=== PATIENT | female | born 1950 | race Caucasian/White ===

== ENCOUNTER 2018-05-31 16:14 | Observation (INO) ==
[2018-05-31] MEDS ORDERED: ULTRAM PO ONE (17:18)
[2018-05-31 17:24] LABS: BASO# 0.04 X1000 (0.0-0.2); BASO% 0.3 % (0.0-0.8); EOS% 1.6 % (0.0-10.0); HEMATOCRIT 36.7 % (37.0-47.0); HEMOGLOBIN 12.4 g/dL (12.0-16.0); IMM GRAN# 0.03 X1000 (0.0-0.04); IMM GRAN% 0.2 % (0.0-0.5); LYMPH# 4.49 X1000 (1.2-3.4); MCH 31.6 PG (27-31); MCHC 33.8 g/dL (33-37); MCV 93.6 FL (81-99); MONO# 0.75 X1000 (0.11-0.59); MONO% 5.9 % (1.7-9.3); MPV 10.4 FL (7.4-10.4); NEUT# 7.31 X1000 (1.4-6.5); PLT 293 X1000 (130-400); RBC 3.92 XMIL (4.2-5.4); RDW 12.6 % (11.5-14.5); WBC 12.82 X1000 (4.8-10.8)
[2018-05-31 17:42] LABS: ALB/GLOB RATIO 1.1; CALCIUM 9.4 mg/dL (8.8-10.2); CREATININE 1.6 mg/dL (0.5-0.9); POTASSIUM 4.6 mmol/L (3.5-5.1); TOTAL BILIRUBIN 0.37 mg/dL (0.20-1.00); TOTAL PROTEIN 7.5 g/dL (6.3-8.3)
[2018-05-31] MEDS ORDERED: NS 1,000 ML IV ONE (17:59)
[2018-05-31] MEDS ORDERED: D50W SYRINGE IV ONE (18:08)
[2018-05-31] MEDS ORDERED: MACROBID PO ONE (18:09)
--- NOTE | 2018-05-31 18:12 | PROVIDER DOCUMENTATION ---
This chart was entered by Jojo Tyson Scribe, acting as scribe for Carlos Christopher MD. HPI-Musculoskeletal Pain/Inj - GENERAL Chief Complaint: Extremity Pain Stated Complaint: right leg pain Time Seen by Provider: 05/31/18 16:30 Source: patient, family - HX OF PRESENT ILLNESS-MUSKULOSKELTAL Nature of Presenting Problem: 68 yowf presents to the ed with c/o RLE pain, swelling and warm to touch. pt sts onset was yesterday and has continued to get worse Quality of Pain: reports: aching, fullness Severity in ED: moderate Onset/Duration: 24 hours ago Timing: still present, getting worse Modifying Factors: improves with: immobilization. worse with: movement, palpation Any recent injury?: No Locality of Occurance: Home Similar Symptoms Previously?: No Recently seen or treated by another doctor?: No Review of Systems - Adult - REVIEW OF SYSTEMS - ADULT Constitutional: denies: chills, fever Eyes: reports: no symptoms reported Ears, Nose, Mouth & Throat: reports: no symptoms reported Cardiovascular: denies: chest pain, palpitations, syncope Respiratory: denies: cough, shortness of breath, wheezing Gastrointestinal: denies: abdominal pain, diarrhea, nausea, vomiting Genitourinary: reports: no symptoms reported Musculoskeletal: reports: frequent leg cramps, other (RLE). denies: back pain, neck pain Integumentary: reports: no symptoms reported Neurological: denies: dizziness/vertigo, headache/migraines, loss of balance, numbness, paresthesia, slurred speech, syncope, tremors Psychiatric: reports: no symptoms reported Endocrine: reports: no symptoms reported Hematologic/Lymphatic: denies: blood clots, easy bruising Allergic/Immunologic: reports: no symptoms reported All Other Systems: Reviewed and Negative Past History - Adult - PAST MEDICAL HISTORY-ADULT Review of Records: reports: Nursing Assessment Review, Medications Reviewed Major Childhood Illnesses: reports: denies history Cardiovascular: reports: HTN Respiratory: reports: denies history Gastrointestinal: reports: denies history Obstetrical/Gynecological: reports: denies history Genitourinary: reports: denies history Musculoskeletal: reports: denies history Hand Dominance: Right Handed Neurological: reports: denies history Psychiatric: reports: denies history Endocrine/Immune: reports: Diabetes Diabetes Type: Type 2 Other Conditions: reports: denies history - PRIOR SURGERIES/PROCEDURES Surgical/Procedure History: reports: hysterectomy, hernia repair - IMMUNIZATION STATUS Childhood Immunizations: See Nurse Assessment Flu Vaccine: See Nurse Assessment - FAMILY HISTORY Family History: reviewed, not pertinent - SOCIAL HISTORY Smoking: denies Substance Use: denies Living Situation: family Physical Exam-Injury Related - Physical Exam-Injury Related Initial Vital Signs Reviewed: Yes General Appearance: appears well, alert, no apparent distress, obese Eyes: PERRL/EOMI, pink conjunctivae Head, Ears, Nose, Mouth & Throat: normocephalic/atraumatic, moist mucous membranes, dental decay Neck: non-tender, full range of motion, supple, normal inspection Respiratory: chest non-tender, lungs clear, normal breath sounds Cardiovascular: normal peripheral pulses, regular rate, rhythm Chest/Breast: deferred Peripheral Pulses: radial (R): 2+, radial (L): 2+, dorsalis-pedis (R): 2+, dorsalis-pedis (L): 2+ Abdominal Exam: normal bowel sounds, non tender, soft Female Genitalia/Pelvic Exam: deferred Rectal Exam: deferred Hemoccult Exam: deferred Lymphatic: no adenopathy Back Exam: normal inspection Extremity: normal capillary refill, pelvis stable, calf tenderness (rt), swelling (RLE), tenderness (RLE), other (warm to palpation 440 cm on Rt, 410 cm on left). negative: normal gait Integumentary: normal color, warm/dry Neurologic: grossly normal, no motor/sensory deficits - Glascow Coma Score Best Eye Response ([place]): (4) open spontaneously Best Verbal Response ([place]): (5) oriented Best Motor Response ([place]): (6) obeys commands Gen Total: 15 Progress - PLAN OF CARE/RESULTS Progress/Plan/Lab Results: Vital Signs - 8 hr 05/31/18 16:40 Temperature 97.9 F Pulse Rate 78 Respiratory Rate 18 Blood Pressure 135/71 O2 Sat by Pulse Oximetry 98 Laboratory Results - last 24 hr 05/31/18 05/31/18 05/31/18 17:02 17:02 17:02 WBC 12.82 H RBC 3.92 L Hgb 12.4 Hct 36.7 L MCV 93.6 MCH 31.6 H MCHC 33.8 RDW Std Deviation 12.6 Plt Count 293 MPV 10.4 Immature Gran % (Auto) 0.2 Neut % (Auto) 57.0 Lymph % (Auto) 35.0 [place] % (Auto) 5.9 Eos % (Auto) 1.6 Baso % (Auto) 0.3 Immature Gran # (Auto) 0.03 Neut # (Auto) 7.31 H Lymph # (Auto) 4.49 H [place] # (Auto) 0.75 H Eos # (Auto) 0.20 Baso # (Auto) 0.04 D-Dimer, Quantitative 1.23 H Sodium 136 Potassium 4.6 Chloride 99 Carbon Dioxide 25 Anion Gap 12 BUN 42 H Creatinine 1.6 H Estimated GFR/1.73 m2 32 BUN/Creatinine Ratio 26 Glucose 57 L Calculated Osmolality 280 Calcium 9.4 Total Bilirubin 0.37 AST 15 ALT 9 L Alkaline Phosphatase 102 Total Protein 7.5 Albumin 4.0 Globulin 3.5 Albumin/Globulin Ratio 1.1 Orders Category Date Time Status Saline Loc NOW Care 05/31/18 17:58 Active CBC WITH ELECTRONIC DIFF [HEME] Stat Lab 05/31/18 17:02 Completed COMPREHENSIVE METABOLIC PANEL [CHEM] Stat Lab 05/31/18 17:02 Completed D-DIMER [COAG] Stat Lab 05/31/18 17:02 Completed UA [URINALYSIS W/POSS RFLX CULT] [URINALYSIS] Stat Lab 05/31/18 16:56 Uncollected 0.9% Sodium Chloride Inj [Ns] 1,000 ml Med 05/31/18 17:59 Active IV 999 mls/hr Dextrose 50% Syringe [D50w Syringe] Med 05/31/18 18:08 Once 50 ml IV NOW ONE Nitrofurantoin [place]/Macrocryst [Macrobid] Med 05/31/18 18:09 Once 100 mg PO NOW ONE Tramadol [Ultram] Med 05/31/18 17:18 Discontinued 50 mg PO NOW ONE US [Venous U/S Right Leg] Stat Ther 05/31/18 16:49 Completed A/P: ALEXY. peripheral neuropathy, varicose veins, possible muscle strain. US doppler neg for DVT. vitals stable. elevated dimer. No SOB, no cough, no respiratory symptoms. She has elevated BUN, Having suprapubic pain, will give macrobid. will admit for hypoglycemia and dehydration As I was re evaluating pt, Family member daughter says we do not know what were doing, they are demanding a CT of her Right leg, stating she "cant walk" she stated she is done with me and done wit this hospital. She is very aggressive and agitated, threw up her arms and said im done with you. Result Diagrams: 05/31/18 17:02 05/31/18 17:02 - CONSULTS/PCP/HOSPITALIST Notification #1 *Consult/PCP/Hospitalist*: Dr Marie Time Discussed: 18:11 Consult Disposition: Admit Departure - Departure Date of Disposition Decision: 05/31/18 Time of Disposition Decision: 18:11 DIAGNOSIS: Right leg pain, Dehydration, Hypoglycemia Disposition: ADMITTED INPATIENT 09 Certified Medical Emergency: Emergent Condition: Stable Additional Freetext Instructions: ED Follow Up Instructions: You have been treated by a care provider in the Emergency Department. These instructions are being provided to you so you can have an understanding of how to care for yourself upon discharge. Upon discharge from the Emergency Department, you are responsible for making arrangements for follow-up care by a physician of your choice. Take all prescribed medications as directed. Return to the Emergency Department immediately for any new or worsening symptoms. You may call the Physician Referral phone number at [phone] to obtain a list of Physicians who are taking new patients. Referrals and Follow-Ups: Melissa Weiss MD [Primary Care Provider] - Call for Appoint. -1 week (please call your pcp in 1 week for appointment, if symtoptoms worses, return imme diaelty to ED) - Critical Care Note This patient required my direct & personal management of CC.: No Attestation - Physician/ JAUN Attestation Patient care was provided by Advanced Practice Provider:: No The physician spent face to face time with patient:: Yes Advanced Practice Provider documentation review:: Supervising physician onsite and consulted in the evaluation and care of this patient. The physician did have a face to face encounter with the patient. This chart was documented by the indicated scribe, (Jojo Tysno Scribe) and accurately reflects the services I performed and decisions made by me, Carlos Christopher MD, as attested by the provider's signature.
--- NOTE | 2018-05-31 18:55 | HISTORY AND PHYSICAL ---
PRIMARY CARE PHYSICIAN: Dr. Melissa Weiss. CHIEF COMPLAINT: Right lower extremity pain, swelling and tender to touch, onset today with increased difficulty walking. HISTORY OF PRESENTING ILLNESS: This is a 68-year-old female who presents to [facility] with complaints of right lower extremity pain, swelling, and tender to touch. States it began yesterday and she had increasing difficulty walking to the point she felt that she could not stand on her feet today and take steps. She states she has some diabetic neuropathy and that she can tell that it is getting worse. She is weak in both lower extremities. Her workup showed a white blood cell count of 12.82. Her D-dimer was 1.23. Preliminary results of her bilateral lower extremity DVT was negative and she did have a bump in her BUN and creatinine at 42 and 1.6 but she does have some chronic kidney disease stage 3. Her blood sugar was also noted to be low at 57. Her urinalysis is pending at this time so we will place her under observation for further evaluation and treatment. PAST MEDICAL HISTORY: Diabetes type 2, hypertension, chronic kidney disease stage 3. PAST SURGICAL HISTORY: Hysterectomy and a hernia repair. FAMILY HISTORY: Her mom had CAD and a CVA. Father had COPD. SOCIAL HISTORY: She currently lives with family. Denies any tobacco, alcohol or illicit drug use. ALLERGIES: She has no known drug allergies. HOME MEDICATIONS: We need to obtain a current list, review, reconcile and restart as appropriate. We will place an order for nursing to update and confirm home medications. LABORATORY DATA: Showed a white blood cell count of 12.82, hemoglobin 12.4, hematocrit 36.7, platelets 293,000. D-dimer of 1.23, BUN of 42, creatinine 1.6, glucose 57. REVIEW OF SYSTEMS: She denied any fever, chills, blurred vision, dizziness, chest pain, coughing, shortness of breath. She denied any abdominal pain, constipation, diarrhea, burning or hurting with urination. She has generalized weakness to her bilateral lower extremities with increased difficulty walking. States she has had some difficulty urinating but no burning or hurting. PHYSICAL EXAMINATION: On arrival she had a temperature of 97.9 degrees, pulse 78, respirations 18, blood pressure 135/71, saturating 98% on room air. GENERAL: This is a 68-year-old female sitting up in the bed and answers questions appropriately. Family also at bedside to answer questions and review of medical record. HEENT: Appears normocephalic and atraumatic. Normal ENT inspection. Oropharynx and nares are clear. Pupils are equal, round, reactive to light and accommodation. Extraocular movements are intact. NECK: Normal inspection, normal range of motion. LUNGS: Clear to auscultation bilaterally with equal lung expansion, chest wall movement. HEART: With regular rate and rhythm. No murmurs, rubs, or gallops. ABDOMEN: Soft, nontender, nondistended. Bowel sounds are present x4 quadrants. MUSCULOSKELETAL: She had 2 to 3/5 to all 4 extremities. NEUROLOGICAL: The cranial nerves 2-12 appear grossly intact. ASSESSMENT: 1. Acute kidney injury on chronic kidney disease stage 3. 2. Hypoglycemia in a known diabetic type 2. 3. Generalized lower extremity weakness. 4. Hypertension history of. PLAN: She will be admitted to the medical unit. Placed on telemetry, diabetic diet, pattern blood sugars with sliding scale insulin, D5 NS at 75 mL an hour. Recheck a CBC, BMP in the a.m., will consult physical therapy. We are going to do a bladder scan and record the results. UA with possible reflex culture is pending and again we need to update and confirm home medications and then will restart as appropriate. Further orders after seen by attending. Dictated by CHACHA Shanks for Jesus Manuel Marie MD cc: Melissa Weiss MD
[2018-05-31 19:12] LABS: URINE SOURCE CLEAN CATCH
[2018-05-31 19:23] LABS: BILIRUBIN URINE NEGATIVE (NEGATIVE); BLOOD URINE NEGATIVE (NEGATIVE); COLOR YELLOW; GLUCOSE URINE NEGATIVE (NEGATIVE); KETONE URINE NEGATIVE (NEGATIVE); LEUKOCYTES URINE LARGE (NEGATIVE); NITRITE URINE NEGATIVE (NEGATIVE); PH URINE 7.5; PROTEIN URINE NEGATIVE (NEGATIVE); SP GRAVITY URINE 1.004; TURBIDITY URINE HAZY (CLEAR); UROBILINOGEN URINE NORMAL (NORMAL)
[2018-05-31 19:26] LABS: UR EPITHELIAL CELLS <10 /HPF (<10); URINE BACTERIA 4+ /HPF; URINE RBC <10 /HPF (<10); URINE WBC TNTC /HPF (<10)
[2018-06-01] MEDS ORDERED: HUMALOG SUBQ PRN (00:05)
[2018-06-01] MEDS ORDERED: TYLENOL PO PRN (00:05)
[2018-06-01] MEDS ORDERED: ZOFRAN IV PRN (00:05)
[2018-06-01] MEDS ORDERED: D5 NS 1,000 ML IV SCH (00:05)
[2018-06-01] MEDS ORDERED: LOVENOX SUBQ SCH (00:05)
[2018-06-01] MEDS ORDERED: ULTRAM PO ONE (05:07)
[2018-06-01 07:36] LABS: BASO# 0.02 X1000 (0.0-0.2); BASO% 0.3 % (0.0-0.8); EOS# 0.31 X1000 (0.0-0.7); EOS% 4.5 % (0.0-10.0); HEMATOCRIT 35.6 % (37.0-47.0); HEMOGLOBIN 11.7 g/dL (12.0-16.0); LYMPH# 2.08 X1000 (1.2-3.4); LYMPH% 30.2 % (20.5-51.1); MCH 31.5 PG (27-31); MCHC 32.9 g/dL (33-37); MONO# 0.61 X1000 (0.11-0.59); MONO% 8.9 % (1.7-9.3); MPV 10.5 FL (7.4-10.4); NEUT# 3.87 X1000 (1.4-6.5); NEUT% 56.1 % (42.2-75.2); PLT 237 X1000 (130-400); RBC 3.71 XMIL (4.2-5.4); RDW 12.8 % (11.5-14.5); WBC 6.89 X1000 (4.8-10.8)
[2018-06-01 07:45] LABS: CALCIUM 8.1 mg/dL (8.8-10.2); CREATININE 1.3 mg/dL (0.5-0.9); POTASSIUM 4.4 mmol/L (3.5-5.1)
[2018-06-01 08:25] VITALS: BP 125/61
[2018-06-01] MEDS ORDERED: MACROBID PO SCH (09:15)
--- NOTE | 2018-06-01 19:33 | DISCHARGE SUMMARY ---
ADMISSION DATE: 05/31/2018 DISCHARGE DATE: 06/01/2018 LABORATORIES: Initial WBC 12.8, repeat 6.8. Initial creatinine 1.6, repeat 3. Urinalysis with no epithelial cells, too numerous to count white cells, large leukocyte esterase, no protein, blood, or glucose. DISCHARGE DIAGNOSES: 1. Right hamstring strain. 2. Urinary tract infection. 3. Diabetes mellitus. 4. Acute kidney injury on chronic kidney disease 3. 5. Hypoglycemia. HOSPITAL COURSE: The patient had presented initially complaining of right leg pain and difficulty walking. She complained of several days of slowly progressive difficulty walking on the right leg and right leg pain. Initial workup in the ED showed a mildly elevated D-dimer of 1.23, but ultrasound showed no signs of clot. There were no deformities on exam. She did have some tenderness along the right hamstring and some pain with movement that leg. There were no other finding on exam, so she was felt to likely have a right hamstring strain. She was also incidentally found to have mild hypoglycemia with an initial glucose of 57. She had a mildly elevated creatinine over baseline with a creatinine of 1.6 initially. Baseline appears to be approximately 1.3. She was given glucose and fluids. She was started on Macrobid in the ED for her UTI, which was continued. The patient has had multiple previous UTIs which have all been E. coli, sensitive to Macrobid. The next day, the patient's creatinine was improving to her baseline. She had no further hypoglycemia on a significantly reduced dose of her home insulin. Her leg pain was still present but improving, as was her ability to move. Discussed with patient the possibility of physical therapy and potentially rehab, but she was adamantly opposed to this. As the patient was supposed to rehab and strongly desired discharge, she was afebrile, her leukocytosis had resolved, her kidney function had returned to normal, and she had had no further hypoglycemia on reduced dose of insulin, it was decided that she was okay for discharge. She and her family were advised to keep track of her sugar and to report to her PCP if she had any further low sugars. I explained to them that anything under 80 should definitely be reported to her PCP and would likely require adjustment in her insulin dose. She was advised to remain hydrated. She was given Macrobid for her UTI and a short course of Mobic to assist with her leg discomfort. DISCHARGE VITAL SIGNS: Temperature 97.5 degrees, pulse 62, respirations 18, blood pressure 125/61, O2 saturation 99% on room air. DISCHARGE DIET: Diabetic. DISCHARGE MEDICATIONS: Lasix 20 mg p.o. daily, gabapentin 400 mg p.o. at bedtime, insulin Lispro 50 units b.i.d. only with meals, Lantus 35 units daily, Mobic 50 mg p.o. daily, Simvastatin 40 mg p.o. at bedtime, lisinopril 10 mg p.o. daily, Synthroid 25 mcg p.o. daily. FOLLOWUP AND PLAN: The patient to discharge home on reduced dose of insulin. Instructed to stay hydrated for the next few days. Patient on a course of Macrobid for UTI and a short course of Mobic for likely right hamstring strain. TIME SPENT: Greater than 30 minutes spent arranging discharge and counseling patient.
--- NOTE | 2018-06-04 14:33 | Extremity Venous Study ---
PROCEDURE NAME: Venous U/S Right Leg - 05/31/2018 REQUESTING PHYSICIAN: Dr. Christopher. MODELING TEACHER: Av. INDICATIONS: Pain and swelling. EQUIPMENT: [employer] Vivid E9 ultrasound system and 9 L-D transducer. FINDINGS: Images of the right lower extremity venous system comparison shot to left common femoral vein were obtained in both sagittal and transverse planes. Doppler was used to evaluate veins for spontaneity, phasicity, respiratory excursion and digital augmentation. RESULTS: Normal right lower extremity venous study without superficial or deep venous thrombosis noted. cc: Jean Carlos Taylor MD
== END 2018-06-01 12:30 | disposition home or self-care (01) ==
LOC: SUPCPDRO → ED 16:14 → INTOOBSV 21:43 → EDIPHOLD 21:43 → 3N 23:49
PROVIDERS: ATTEND Internal Medicine
CPT/HCPCS: 80048; 80053; 81001; 82948; 85025; 85379; 87077; 87088; 87186; 93971; 97161; 97530; 99284; A9270; J1650; J7030; J7042; XXXXX